=== PATIENT | female | born 1980 | race African-American/Black ===

== ENCOUNTER 2019-01-26 05:59 | Day surgery (SDC) | payer OTHER ==
[~2019-01-26] VITALS: Ht 175.3 cm; Wt 126.8 kg
[~2019-01-26 05:59] MED LIST: RINGERS SOLUTION,LACTATED 1,000 ML IV ONE
[2019-01-26] MEDS ORDERED: MIDAZOLAM HCL 2 MG/2 ML VIAL IVP ONE (06:00)
[2019-01-26] MEDS ORDERED: PROPOFOL 1% 20 ML VIAL IVP ONE (06:00)
[2019-01-26] MEDS ORDERED: LIDOCAINE/PF 2% 5 ML VIAL IM ONE (06:00)
[2019-01-26] MEDS ORDERED: TRIAMCINOLONE ACETONIDE 40 MG/ML VIAL ONE ×2 (06:31→06:32)
[2019-01-26] MEDS ORDERED: BUPIVACAINE HCL/PF 0.25% 30 ML VIAL ONE (06:32)
[2019-01-26] MEDS ORDERED: IOHEXOL 240 MG/ML 20 ML VIAL ONE (06:39)
== END 2019-01-26 09:35 | disposition home or self-care (01) ==
LOC: SURGERY 05:59
PROVIDERS: ATTEND Orthopaedic Surgery
DX: S49.81XA Other specified injuries of right shoulder and upper arm, initial encounter (principal); S69.81XA Other specified injuries of right wrist, hand and finger(s), initial encounter; S99.811A Other specified injuries of right ankle, initial encounter; S89.82XA Other specified injuries of left lower leg, initial encounter; E66.3 Overweight; Z68.41 Body mass index [BMI] 40.0-44.9, adult; J45.909 Unspecified asthma, uncomplicated; Z79.899 Other long term (current) drug therapy; X58.XXXA Exposure to other specified factors, initial encounter; Y93.89 Activity, other specified; Y92.89 Other specified places as the place of occurrence of the external cause; Y99.8 Other external cause status
CPT/HCPCS: 23350; 25246; 27369; 27648; 73040; 73115; 73580; 73615; 84703; J2250; J2704; J3301; J3490 ×2; J7120; Q9966